=== PATIENT | female | born 1980 | race Caucasian/White ===

== ENCOUNTER 2021-08-07 09:29 | Emergency (ER) | payer OTHER ==
[~2021-08-07 09:29] MED LIST: FLEXERIL10 MG PO; IBUPROFEN800 MG PO; MOTRIN600 MG PO; PREDNISONE 20MG20 MG PO
[2021-08-07 12:50] LABS: BASOPHIL 0.4 % (0-2); EOSINOPHIL 0 % (0-5); HCT 41.7 % (37.0-47.0); HGB 14.3 g/dl (12.5-16.0); LYMPHOCYTE 33.3 % (15-48); MCH 32.4 pg (25.0-31.0); MCHC 34.3 g/dL (32.0-36.0); MCV 94.3 fL (78.0-100.0); MPV 9.9 fL (6.0-9.5); NEUTROPHIL 60.3 % (41-80); NRBC 0; PLT 198 K/uL (150-400); RBC 4.42 M/uL (4.20-5.40); RDW 12.3 % (11.5-14.0)
[2021-08-07 12:53] LABS: BILIRUBIN NEGATIVE (NEGATIVE); BLOOD TRACE-INTACT Ery/uL (NEGATIVE); CLARITY CLEAR (CLEAR); COLOR YELLOW (YELLOW); GLUCOSE (U) NORMAL (NORMAL); LEUKOCYTES NEGATIVE Leu/uL (NEGATIVE); NITRITE NEGATIVE (NEGATIVE); PROTEIN NEGATIVE (NEGATIVE); SPECIFIC GRAVITY <=1.005 (1.001-1.030); UROBILINOGEN 0.2 mg/dL (0.2-1.0)
[2021-08-07 13:13] LABS: URINARY RBC RARE; URINARY WBC RARE
[2021-08-07 13:30] LABS: ALBUMIN 3.6 g/dL (3.4-5.0); BILIRUBIN - TOTAL 0.2 mg/dL (0.2-1.0); BUN/CREAT RATIO (CALC) 11.5 RATIO; C-REACTIVE PROTEIN 0.5 mg/dL (<=0.90); CREATININE 0.78 mg/dL (0.51-0.95); GLOBULIN (CALCULATION) 2.9 g/dL; MAGNESIUM 1.6 mg/dL (1.8-2.4); POTASSIUM 3.9 mmol/L (3.5-5.1); TOTAL PROTEIN 6.5 g/dL (6.4-8.2)
[2021-08-07] MEDS ORDERED: VENTOLIN HFA18 GM INH (14:54)
[2021-08-07] MEDS ORDERED: MEDROL 4MG DOSEP4 MG PO (14:54)
[2021-08-07] MEDS ORDERED: TESSALON PERLE100 MG PO (14:54)
== END 2021-08-07 15:15 | disposition home or self-care (01) ==
LOC: FER 09:29
PROVIDERS: Emergency Medicine
DX: U07.1 COVID-19 (principal); F17.210 Nicotine dependence, cigarettes, uncomplicated
CPT/HCPCS: 36415; 71045; 80053; 81001; 82728; 83615; 83735; 84145; 85025; 85379; 86140; 93005; 94640; J7030